=== PATIENT | female | born 1955 | race Caucasian/White ===

== ENCOUNTER → 2017-05-26 | Outpatient (CLI) | payer BC ==
[2016-04-12 10:57] VITALS: BP 131/64
[~2017-05-26] MED LIST: ALPR0.5T6 PO; ASPI500T13 PO; CEFP200T PO; CLOZ25TA7 PO; FAMO20TA5 PO; FESO8TAB PO; INSU100I17 SQ; INSU100I27 SQ; IPRA3AMP NEB; LISI2.5T PO; MAGN400T22 PO; METF-551 PO; METO50TA6 PO; MICO30CR11 TP; MONT10TA9 PO; NORT10CA PO; SERT50TA8 PO; SIMV40TA3 PO; SULF1TAB24 PO
--- NOTE | 2017-05-26 14:40 | RAD ---
DATE: May 26, 2017 EXAM: DIGITAL SCREEN BILAT W/CAD HISTORY: Routine Screening COMPARISON: TECHNIQUE: Routine digital mammographic views were obtained. This study was interpreted with the benefit of Computerized Aided Detection (CAD). The breast parenchyma shows scattered fibroglandular densities. Breast parenchyma level B. FINDINGS: No suspicious findings. IMPRESSION: Negative examination. BI-RADS CATEGORY: 1 NEGATIVE RECOMMENDED FOLLOW-UP: 12M 12 MONTH FOLLOW-UP PQRS compliance statement: Patient information was entered into a reminder system with a target due date for the next mammogram. Mammography is a sensitive method for finding small breast cancers, but it does not detect them all and is not a substitute for careful clinical examination. A negative mammogram does not negate a clinically suspicious finding and should not result in delay in biopsying a clinically suspicious abnormality. "Our facility is accredited by the [employer] Mammography Program."
== END | disposition home or self-care (01) ==
LOC: MAMMO 13:03
PROVIDERS: ATTEND Family Medicine
DX: Z12.31 Encounter for screening mammogram for malignant neoplasm of breast (principal)
CPT/HCPCS: G0202; 77067

== ENCOUNTER → 2019-10-24 | Outpatient (CLI) | payer BC ==
[2016-04-12 10:57] VITALS: BP 131/64
[~2019-10-24] MED LIST changes: -IPRA3AMP NEB; +IPRA3AMP29 NEB; +MONT10TA49 PO; -MONT10TA9 PO; +SIMV40TA18 PO; -SIMV40TA3 PO
--- NOTE | 2019-10-24 14:15 | RAD ---
EXAM: CT head without contrast INDICATION: Abnormal gait, hydrocephalus COMPARISON: CT head 10/08/2015 TECHNIQUE: Axial CT imaging through the head without intravenous contrast. One or more of the following individualized dose reduction techniques were utilized for this examination: 1. Automated exposure control 2. Adjustment of the mA and/or kV according to patient size 3. Use of iterative reconstruction technique. FINDINGS: The ventricles are moderately enlarged and sulci are mild to moderately enlarged, both likely related to volume loss. Marquez-white matter differentiation is maintained. There is no intracranial hemorrhage, acute infarct, or mass lesion. Basal cisterns are clear. The skull and scalp are intact. Paranasal sinuses and mastoid air cells are clear. Globes and orbits are intact. IMPRESSION: 1. No acute intracranial abnormality. 2. Unchanged [id number] volume loss. Electronically signed by: Mavis Emanuel MD (10/24/2019 2:12 PM) [id number]
== END | disposition home or self-care (01) ==
LOC: CT 12:08
PROVIDERS: ATTEND Family Medicine
DX: G93.89 Other specified disorders of brain (principal); G91.9 Hydrocephalus, unspecified; R26.9 Unspecified abnormalities of gait and mobility
CPT/HCPCS: 70450

== ENCOUNTER 2020-03-14 15:57 | Emergency (ER) | payer BC ==
[~2020-03-14] VITALS: Ht 154.9 cm; Wt 93.0 kg
--- NOTE | 2020-03-14 16:24 | ED.ADGEN ---
Past Medical History Past Medical History: COPD, CVA, Dementia, Diabetes-Type II, High Cholesterol, Hypertension, Other Additional Past Medical Histor: CHRONIC BACK PAIN,ALZHEIMER'S Past Surgical History: Hysterectomy, Other Additional Past Surgical Histo: BACK SURGERY Smoking Status: Never Smoker Alcohol Use: None Drug Use: None Adult General Chief Complaint Chief Complaint: HALLUCINATIONS AUDIBLE/VISUAL HPI HPI Patient is a 64 year old female brought in by her who is concerned about worsening hallucinations and disorientation. She has been deteriorating over the past couple of months and over the past few weeks has been confusing people as others who have already . She is having increasing difficulty remembering day-to-day activities. Had a fall yesterday in the hallway will try to go to the restroom but did not pass out or hit her head. Has been diagnosed with Alzheimer's. was concerned today because this was the first time that she has become "belligerent" with him and he states he is normally able to redirect her. Review of Systems Review of Systems Constitutional: Denies fever or chills. [] Eyes: Denies change in visual acuity. [] HENT: Denies nasal congestion or sore throat. [] Respiratory: Denies cough or shortness of breath. [] Cardiovascular: Denies chest pain or edema. [] GI: Denies abdominal pain, nausea, vomiting, bloody stools or diarrhea. [] : Denies dysuria. [] Musculoskeletal: Denies back pain or joint pain. [] Integument: Denies rash. [] Neurologic: Denies headache, focal weakness or sensory changes. [] Endocrine: Denies polyuria or polydipsia. [] Lymphatic: Denies swollen glands. [] Psychiatric: Denies depression or anxiety. [] Current Medications Current Medications Current Medications Medications (Trade) Dose Ordered Sig/Cecelia Start Time Stop Time Status Last Admin Dose Admin Fosfomycin Tromethamine (Monurol) 3 gm 1X ONCE 03/14/20 18:30 03/14/20 18:31 DC Allergies Allergies Allergies Coded Allergies Type Severity Reaction Last Updated Verified adhesive tape Allergy Intermediate 10/10/15 Yes celecoxib Allergy Intermediate 10/08/15 Yes Physical Exam Physical Exam Constitutional: Well developed, well nourished, no acute distress, non-toxic appearance. [] HENT: Normocephalic, atraumatic, bilateral external ears normal, oropharynx moist, no oral exudates, nose normal. [] Eyes: PERRLA, EOMI, conjunctiva normal, no discharge. [] Neck: Normal range of motion, no tenderness, supple, no stridor. [] Cardiovascular:Heart rate regular rhythm, no murmur [] Lungs & Thorax: Bilateral breath sounds clear to auscultation [] Abdomen: Bowel sounds normal, soft, no tenderness, no masses, no pulsatile masses. [] Skin: Warm, dry, no erythema, no rash. [] Back: No tenderness, no CVA tenderness. [] Extremities: No tenderness, no cyanosis, no clubbing, ROM intact, no edema. [] Neurologic: No focal deficits,, patient is slow to answer Psychologic: Flat affect Current Patient Data Vital Signs Vital Signs Date Time Temp Pulse Resp B/P (MAP) Pulse Ox O2 Delivery O2 Flow Rate FiO2 03/14/20 16:45 96 18 116/60 (78) 99 Room Air 03/14/20 16:17 98.5 98.5 Lab Values Laboratory Tests Test 03/14/20 17:24 03/14/20 17:45 Urine Collection Type Unknown Urine Color Yellow Urine Clarity Cloudy Urine pH 5.0 (<5.0-8.0) Urine Specific [place] 1.010 (1.000-1.030) Urine Protein Negative mg/dL (NEG-TRACE) Urine Glucose (UA) Negative mg/dL (NEG) Urine Ketones (Stick) Negative mg/dL (NEG) Urine Blood Negative (NEG) Urine Nitrite Positive (NEG) Urine Bilirubin Negative (NEG) Urine Urobilinogen Dipstick 1.0 mg/dL (0.2 mg/dL) Urine Leukocyte Esterase Moderate (NEG) Urine RBC 0 /HPF (0-2) Urine WBC 20-40 /HPF (0-4) Urine Squamous Epithelial Cells Many /LPF Urine Bacteria Many /HPF (0-FEW) Urine Mucus Mod /LPF Urine Opiates Screen Neg (NEG) Urine Methadone Screen Neg (NEG) Urine Barbiturates Neg (NEG) Urine Phencyclidine Screen Neg (NEG) Urine Amphetamine/Methamphetamine Neg (NEG) Urine Benzodiazepines Screen Pos (NEG) Urine Cocaine Screen Neg (NEG) Urine Cannabinoids Screen Neg (NEG) Urine Ethyl Alcohol Neg (NEG) White Blood Count 8.3 x10^3/uL (4.0-11.0) Red Blood Count 3.79 x10^6/uL (3.50-5.40) Hemoglobin 12.1 g/dL (12.0-15.5) Hematocrit 35.3 % (36.0-47.0) L Mean Corpuscular Volume 93 fL (79-100) Mean Corpuscular Hemoglobin 32 pg (25-35) Mean Corpuscular Hemoglobin Concent 34 g/dL (31-37) Red Cell Distribution Width 12.9 % (11.5-14.5) Platelet Count 137 x10^3/uL (140-400) L Neutrophils (%) (Auto) 61 % (31-73) Lymphocytes (%) (Auto) 30 % (24-48) Monocytes (%) (Auto) 6 % (0-9) Eosinophils (%) (Auto) 2 % (0-3) Basophils (%) (Auto) 1 % (0-3) Neutrophils # (Auto) 5.1 x10^3/uL (1.8-7.7) Lymphocytes # (Auto) 2.5 x10^3/uL (1.0-4.8) Monocytes # (Auto) 0.5 x10^3/uL (0.0-1.1) Eosinophils # (Auto) 0.2 x10^3/uL (0.0-0.7) Basophils # (Auto) 0.1 x10^3/uL (0.0-0.2) Sodium Level 143 mmol/L (136-145) Potassium Level 3.5 mmol/L (3.5-5.1) Chloride Level 106 mmol/L (98-107) Carbon Dioxide Level 28 mmol/L (21-32) Anion Gap 9 (6-14) Blood Urea Nitrogen 8 mg/dL (7-20) Creatinine 1.1 mg/dL (0.6-1.0) H Estimated GFR (Cockcroft-Gault) 50.3 BUN/Creatinine Ratio 7 (6-20) Glucose Level 103 mg/dL (70-99) H Lactic Acid Level 2.2 mmol/L (0.4-2.0) H Calcium Level 9.7 mg/dL (8.5-10.1) Total Bilirubin 0.4 mg/dL (0.2-1.0) Aspartate Amino Transferase (AST) 29 U/L (15-37) Alanine Aminotransferase (ALT) 20 U/L (14-59) Alkaline Phosphatase 131 U/L (46-116) H Total Protein 7.8 g/dL (6.4-8.2) Albumin 3.4 g/dL (3.4-5.0) Albumin/Globulin Ratio 0.8 (1.0-1.7) L Laboratory Tests 03/14/20 17:45 Laboratory Tests 03/14/20 17:45 EKG EKG Normal sinus rhythm, heart rate 97 bpm., Normal axis, normal intervals, flattened T waves [] Interpretation Time: 1631 Radiology/Procedures Radiology/Procedures EXAMINATION: CT HEAD WO CONTRAST (CT HEAD WITHOUT IV CONTRAST) CLINICAL HISTORY: Fall TECHNIQUE: Serial axial images without IV contrast were obtained from the vertex to the foramen magnum. CT Dose Reduction Employed: One or more of the following individualized dose reduction techniques were utilized for this examination: 1. Automated exposure control 2. Adjustment of the mA and/or kV according to patient size 3. Use of iterative reconstruction technique. COMPARISON: 10/24/2019 FINDINGS: Post-operative change: None. Acute change: No evidence of an acute contusion or other acute parenchymal process. Hemorrhage: No evidence of acute intracranial hemorrhage. Mass Lesion / Mass Effect: There is no evidence of an intracranial mass or extraaxial fluid collection. No significant mass effect. Chronic change: None apparent. Parenchyma: There is mild to moderate generalized volume loss. The brain parenchyma is otherwise within normal limits for age. Ventricles: Ventricular enlargement concordant with the degree of parenchymal volume loss. Paranasal sinuses and skull base: The visualized paranasal sinuses are grossly clear. Atherosclerotic ossification of bilateral carotid siphons. The skull base and imaged soft tissues are unremarkable. IMPRESSION: No evidence of acute intracranial abnormality or significant interval change. [] Course & Med Decision Making Course & Med Decision Making Pertinent Labs and Imaging studies reviewed. (See chart for details) Concern for worsening confusion, likely delirium frmo uti, in a patient with dementia. Patient afebrile with no leukocytosis, lactic acid 2.2. No blood in her urinalysis. Unremarkable head CT. Drug screen positive for benzos. Son reports patient has supportive services at home and agrees with plan for discharge. Son and patient understand strict ED return precautions for worsening fever, nausea or vomiting or flulike symptoms, was educated on risk of pyelonephritis and sepsis. UTI was treated with fosfomycin in the ED (to avoid medication noncompliace due to dementia. Encouraged urgent outpatient follow- up with PMD in 1 week to repeat urinalysis.. Life-threatening processes were considered but are low suspicion at this time, given history and physical exam. Pt was educated on all prescription medications and adverse effects. All patient's questions were answered and pt was stable at time of discharge. Life threatening differential includes but is not limited to, intracranial process/cva, sepsis, delirium, shock, etc I spoken with the patient and her caregivers. I explained the patient's condit ion, diagnoses and treatment plan based on the information available to me at this time. I have answered the patient and her caregiver's questions and addressed any concerns. The patient and her caregivers have a good understanding of patient's diagnosis, condition and treatment plan as can be exp ected at this point. Vital signs have been stable. Patient's condition is stable and appropriate for discharge from the emergency department. Patient will pursue further outpatient evaluation with primary care physician or other designated or consulting physician as outlined in the discharge ins tructions. The patient and/or caregivers are agreeable to this plan of care and follow-up instructions have been explained in detail. The patient and/or caregivers have received these instructions in written form and have expressed an understanding of the discharge instructions. The patient and/or caregivers are aware that any significant change of condition or worsening of symptoms should prompt immediate return to this or the closest emergency department or call to 911. Sharon Disclaimer Dragon Disclaimer This electronic medical record was generated, in whole or in part, using a voice recognition dictation system. Departure Departure Impression: Primary Impression: UTI (urinary tract infection) Additional Impression: Dementia Disposition: 01 DC HOME SELF CARE/HOMELESS Condition: STABLE Referrals: Natalya LIZ MD (PCP) in 1 week to repeat u/a, return to ed if you develop any fever, nausea, vomiting or flulike symptoms Patient Instructions: Dementia, Urinary Tract Infection Additional Instructions: EMERGENCY DEPARTMENT GENERAL DISCHARGE INSTRUCTIONS Thank you for coming to [facility] Emergency Department (ED) today and trusting us with you care. We trust that you had a positive experience in our Emergency Department. If you wish to speak to the department management, you may call the Director at [phone]. YOUR FOLLOW UP INSTRUCTIONS ARE FOLLOWS: 1. Do you have a private Doctor? If you do not have a private doctor, please ask for a resource list of physicians or clinics that may be able to assist you with follow up care. 2. The Emergency Physicain has interpreted your x-rays. The X-Ray specialist will also review them. If there is a change in the findings, you will be notified in 48 hours when at all possible. 3. A lab test or culture has been done, your results will be reviewed and you will be notified if you need a change in treatment. ADDITIONAL INSTRUCTIONS AND INFORMATION: 1. Your care today has been supervised by a physician who is specially trained in emergency care. Many problems require more than one evaluation for a complete diagnosis and treatment. We recommend that you schedule your follow up appointment as recommended to ensure complete treatment of you illness or injury. If you are unable to obtain follow up care and continue to have a problem, or if your condition worsens, we recommend that you return to the ED. 2. We are not able to safely determine your condition over the phone nor are we able to give sound medical advice over the phone. For these safety reasons, if you call for medical advice we will ask you to come to the ED for further evaluation. 3. If you have any questions regarding these discharge instructions please call the ED at [phone]. SAFETY INFORMATION: In the interest of safety, wellness, and injury prevention; we encourage you to wear your sealbelt, if you smoke; quite smoking, and we encourage family to use a protective helmet for bicycling and other sporting events that present an increased risk for head injury. IF YOUR SYMPTOMS WORSEN OR NEW SYMPTOMS DEVELOP, OR YOU HAVE CONCERNS ABOUT YOUR CONDITION; OR IF YOUR CONDITION WORSENS WHILE YOU ARE WAITING FOR YOUR FOLLOW UP APPOINTMENT; EITHER CONTACT YOUR PRIMARY CARE DOCTOR, THE PHYSICIAN WHOSE NAME AND NUMBER YOU WERE GIVEN, OR RETURN TO THE ED IMMEDIATELY. Problem Qualifiers TORIBIO COBOS MD Mar 14, 2020 16:24 NARDA ESPINO DO Mar 14, 2020 18:46
[2020-03-14 17:31] LABS: BILIRUBIN,URINE NEGATIVE (NEG); CLARITY,URINE CLOUDY; COLOR,URINE YELLOW; NITRITE,URINE POSITIVE (NEG); PROTEIN,URINE NEGATIVE (NEG-TRACE)
[2020-03-14 17:37] LABS: BACTERIA,URINE MANY /HPF (0-FEW); WBC,URINE 20-40 /HPF (0-4)
[2020-03-14 17:38] LABS: AMPHETAMINE/METHAMPHETAMINE NEG (NEG); BARBITURATES NEG (NEG); BENZODIAZEPINES POS (NEG); CANNABINOIDS NEG (NEG); COCAINE NEG (NEG); METHADONE NEG (NEG); OPIATES NEG (NEG); PHENCYCLIDINE NEG (NEG); RBC,URINE 0 /HPF (0-2)
--- NOTE | 2020-03-14 17:38 | RAD ---
EXAMINATION: CT HEAD WO CONTRAST (CT HEAD WITHOUT IV CONTRAST) CLINICAL HISTORY: Fall TECHNIQUE: Serial axial images without IV contrast were obtained from the vertex to the foramen magnum. CT Dose Reduction Employed: One or more of the following individualized dose reduction techniques were utilized for this examination: 1. Automated exposure control 2. Adjustment of the mA and/or kV according to patient size 3. Use of iterative reconstruction technique. COMPARISON: 10/24/2019 FINDINGS: Post-operative change: None. Acute change: No evidence of an acute contusion or other acute parenchymal process. Hemorrhage: No evidence of acute intracranial hemorrhage. Mass Lesion / Mass Effect: There is no evidence of an intracranial mass or extraaxial fluid collection. No significant mass effect. Chronic change: None apparent. Parenchyma: There is mild to moderate generalized volume loss. The brain parenchyma is otherwise within normal limits for age. Ventricles: Ventricular enlargement concordant with the degree of parenchymal volume loss. Paranasal sinuses and skull base: The visualized paranasal sinuses are grossly clear. Atherosclerotic ossification of bilateral carotid siphons. The skull base and imaged soft tissues are unremarkable. IMPRESSION: No evidence of acute intracranial abnormality or significant interval change. Electronically signed by: Lan Andrews DO (03/14/2020 5:35 PM) [id number]
--- NOTE | 2020-03-14 17:54 | EKG ---
[facility] [address] [place] [address] Test Date: 2020-03-14 Test Time: 16:27:02 Pat Name: AMARA HINOJOSA Department: Room: Gender: F Second Helper: : 1955 Requested By: TORIBIO COBOS Order Number: [id number] Reading MD: Measurements Intervals [place] Rate: 97 P: -2 DE: 136 QRS: 24 QRSD: 80 T: -15 QT: 324 QTc: 415 Interpretive Statements SINUS RHYTHM T ABNORMALITY IN ANTERIOR LEADS INFERIOR LEADS ABNORMAL ECG RI6.02 No previous ECG available for comparison
[2020-03-14 17:58] LABS: BASO # 0.1 x10^3/uL (0.0-0.2); BASO % 1 % (0-3); EOS # 0.2 x10^3/uL (0.0-0.7); EOS % 2 % (0-3); HEMATOCRIT 35.3 % (36.0-47.0); HEMOGLOBIN 12.1 g/dL (12.0-15.5); LYMPH # 2.5 x10^3/uL (1.0-4.8); LYMPH % 30 % (24-48); MEAN CORPUSCULAR HEMOGLOBIN 32 pg (25-35); MEAN CORPUSCULAR HGB CONC 34 g/dL (31-37); MEAN CORPUSCULAR VOLUME 93 fL (79-100); MONO # 0.5 x10^3/uL (0.0-1.1); MONO % 6 % (0-9); NEUT # 5.1 x10^3/uL (1.8-7.7); NEUT % 61 % (31-73); PLATELET COUNT 137 x10^3/uL (140-400); RED BLOOD COUNT 3.79 x10^6/uL (3.50-5.40); RED CELL DISTRIBUTION WIDTH 12.9 % (11.5-14.5); WHITE BLOOD COUNT 8.3 x10^3/uL (4.0-11.0)
[2020-03-14 18:05] LABS: CALCIUM 9.7 mg/dL (8.5-10.1); CREATININE 1.1 mg/dL (0.6-1.0); GFR 50.3; POTASSIUM 3.5 mmol/L (3.5-5.1)
[2020-03-14 18:11] LABS: ALBUMIN 3.4 g/dL (3.4-5.0); ALBUMIN/GLOBULIN RATIO 0.8 (1.0-1.7); TOTAL BILIRUBIN 0.4 mg/dL (0.2-1.0); TOTAL PROTEIN 7.8 g/dL (6.4-8.2)
[2020-03-14] MEDS ORDERED: FOSFOMYCIN TROMETHAMINE 3 GM PACKET PO ONE (18:30)
[2020-03-14 18:42] VITALS: BP 161/92
== END 2020-03-14 19:18 | disposition home or self-care (01) ==
LOC: ER 15:57
DX: N39.0 Urinary tract infection, site not specified (principal); F03.90 Unspecified dementia, unspecified severity, without behavioral disturbance, psychotic disturbance, mood disturbance, and anxiety; R44.3 Hallucinations, unspecified; R41.0 Disorientation, unspecified; R11.2 Nausea with vomiting, unspecified; R50.9 Fever, unspecified; J44.9 Chronic obstructive pulmonary disease, unspecified; E78.00 Pure hypercholesterolemia, unspecified; I10 Essential (primary) hypertension; G89.29 Other chronic pain; E11.9 Type 2 diabetes mellitus without complications; Z86.73 Personal history of transient ischemic attack (TIA), and cerebral infarction without residual deficits; Z90.710 Acquired absence of both cervix and uterus; Z98.890 Other specified postprocedural states; Z88.8 Allergy status to other drugs, medicaments and biological substances
CPT/HCPCS: 36415; 70450; 80053; 80307; 81001; 83605; 85025; 87086; 93005; 99285

== ENCOUNTER → 2020-04-04 | Outpatient (CLI) | payer BC ==
[2020-03-14 18:42] VITALS: BP 161/92
--- NOTE | 2020-04-04 17:36 | RAD ---
DATE: 04/04/2020 1:21 PM EXAM: DIGITAL SCREEN BILAT W/CAD HISTORY: Screening COMPARISON: 05/26/2017 Bilateral full field craniocaudal and mediolateral oblique images were obtained using digital technique. This study was interpreted with the benefit of Computerized Aided Detection (CAD). FINDINGS: Breast Density: SCATTERED The breast parenchyma shows scattered fibroglandular densities. Breast parenchyma level B Negative right mammogram. Possible developing asymmetry in the middle third left breast slightly lateral of midline needs additional imaging with full-field ML view and possible targeted left breast ultrasound. IMPRESSION: Left breast asymmetry, findings for which additional imaging is advised. BI-RADS CATEGORY: 0 INCOMPLETE: NEEDS ADDITIONAL IMAGING EVALUATION AND/OR PRIOR MAMMOGRAMS FOR COMPARISON. RECOMMENDED FOLLOW-UP: ADD ADDITIONAL IMAGING The patient will be contacted to return for additional imaging and a supplemental report will follow. PQRS compliance statement: Patient information was entered into a reminder system with a target due date for the next mammogram. Mammography is a sensitive method for finding small breast cancers, but it does not detect them all and is not a substitute for careful clinical examination. A negative mammogram does not negate a clinically suspicious finding and should not result in delay in biopsying a clinically suspicious abnormality. "Our facility is accredited by the [employer] Mammography Program."
== END ==
LOC: MAMMO 13:14
PROVIDERS: ATTEND Family Medicine
DX: Z12.31 Encounter for screening mammogram for malignant neoplasm of breast (principal)
CPT/HCPCS: 77067

== ENCOUNTER → 2020-04-30 | Outpatient (CLI) | payer BC ==
--- NOTE | 2020-04-30 17:25 | RAD ---
Examination: 1. Digital left diagnostic mammogram. 2. Limited left breast ultrasound. INDICATION: 64-year-old woman recalled from screening for asymmetry in the upper outer left breast. She reports a recent history of direct trauma to this upper outer quadrant left breast. COMPARISON: Screening mammogram of 04/04/2020 and 05/26/2017 TECHNIQUE AND FINDINGS: Additional mammographic views of the left breast (a single left ML view) showed decreased conspicuity of the questioned asymmetry recalled from screening and the presence of multiple scattered mammographically benign oil cysts in the superior left breast. The breast is almost entirely fatty replaced. Targeted ultrasound of the upper outer left breast revealed multiple sonographically benign cysts and scattered areas of increased echogenicity in the subcutaneous fat compatible with fat necrosis. No suspicious sonographic findings were apparent. Service Cashier images were acquired at the 12 30-1 30 o'clock position approximately 8 cm from the nipple. Sonographic survey of the left axilla revealed no adenopathy. IMPRESSION: Probably benign posttraumatic findings in the upper outer left breast. Recommend a six-month follow-up left diagnostic mammogram. BI-RADS Category 3 Probably benign findings Patient entered into a reminder system with targeted due date for next mammogram. Electronically signed by: Marianela Dunn MD (04/30/2020 5:22 PM) [id number]
== END ==
LOC: US 13:00
PROVIDERS: ATTEND Family Medicine
DX: N60.02 Solitary cyst of left breast (principal)
CPT/HCPCS: 76641; 77065

== ENCOUNTER 2020-05-30 08:50 | Emergency (ER) | payer BC ==
[~2020-05-30] VITALS: Ht 162.6 cm; Wt 86.3 kg
[2020-05-30] MEDS ORDERED: LIDOCAINE 1%/EPI 1:100,000 20 ML VIAL. INJ ONE (09:00)
--- NOTE | 2020-05-30 09:12 | ED.ADGEN ---
Past Medical History Past Medical History: COPD, CVA, Dementia, Diabetes-Type II, High Cholesterol, Hypertension, Other Additional Past Medical Histor: CHRONIC BACK PAIN,ALZHEIMER'S Past Surgical History: Hysterectomy, Other Additional Past Surgical Histo: BACK SURGERY Smoking Status: Never Smoker Alcohol Use: None Drug Use: None General Adult EDM: Chief Complaint: MECHANICAL FALL HPI: HPI: Patient is a 64 year old female brought in by after a fall 1 hour prior to arrival. Patient has a history of Alzheimer's that is shuffling gait and has frequent falls. witnessed the fall and says she had gotten up out of her chair and lost balance and fell forward and hit the wall a couple of feet in front of her. No loss of consciousness. Otherwise has been well without any recent fevers, cough, vomiting or diarrhea. History provided by Review of Systems: Review of Systems: Negative other than HPI Current Medications: Current Medications Medications (Trade) Dose Ordered Sig/Cecelia Start Time Stop Time Status Last Admin Dose Admin Lidocaine/ Epinephrine (LIDOCAINE 1%-EPI 1:100,000 Multi-Dose) 20 ml 1X ONCE 05/30/20 09:00 05/30/20 09:02 DC 05/30/20 09:15 20 ML Neomycin/ Polymyxin/ Bacitracin (Triple Antibiotic Ointment) 1 pkt 1X ONCE 05/30/20 10:00 05/30/20 10:01 Allergies: Allergies: Allergies Coded Allergies Type Severity Reaction Last Updated Verified adhesive tape Allergy Intermediate 10/10/15 Yes celecoxib Allergy Intermediate 10/08/15 Yes Physical Exam: PE: Constitutional: Well developed, well nourished, no acute distress, non-toxic appearance. [] HENT: Normocephalic, atraumatic, bilateral external ears normal, oropharynx moist, no oral exudates, nose normal. [] Eyes: PERRLA, EOMI, conjunctiva normal, no discharge. [] Neck: Normal range of motion, no tenderness, supple, no stridor. [] no c spine tenderness Cardiovascular:Heart rate regular rhythm, no murmur [] Lungs & Thorax: Bilateral breath sounds clear to auscultation [] Abdomen: Bowel sounds normal, soft, no tenderness, no masses, no pulsatile masses. [] Skin: Warm, dry, no erythema, no rash. [] Extremities: No tenderness, no cyanosis, no clubbing, ROM intact, no edema. [] Neurologic: Alert and oriented X 3, normal motor function, normal sensory func tion, no focal deficits noted. [] Psychologic: Affect normal, judgement normal, mood normal. [] Current Patient Data: Vital Signs: Vital Signs Date Time Temp Pulse Resp B/P (MAP) Pulse Ox O2 Delivery O2 Flow Rate FiO2 05/30/20 09:01 97.9 76 18 150/67 (94) 97 Room Air 97.9 EKG: EKG: [] Heart Score: Risk Factors: Risk Factors: DM, Current or recent (<one month) smoker, HTN, HLP, family history of CAD, obesity. Risk Scores: Score 0 - 3: 2.5% MACE over next 6 weeks - Discharge Home Score 4 - 6: 20.3% MACE over next 6 weeks - Admit for Clinical Observation Score 7 - 10: 72.7% MACE over next 6 weeks - Early Invasive Strategies Radiology/Procedures: Radiology/Procedures: Left forehead laceration, 2 cm and irregular. Approximate 3 mm deep. Irrigated thoroughly with saline and examined to depth of wound. Anesthesia achieved with 2 cc of lidocaine with epinephrine. Wound closed with 5-0 Ethilon, 4 simple interrupted sutures placed without complication. Course & Med Decision Making: Course & Med Decision Making Pertinent Labs and Imaging studies reviewed. (See chart for details) [] Dragon Disclaimer: Dragon Disclaimer: This electronic medical record was generated, in whole or in part, using a voice recognition dictation system. Departure Departure Impression: Primary Impression: Fall Additional Impression: Forehead laceration Disposition: 01 DC HOME SELF CARE/HOMELESS Condition: IMPROVED Referrals: Natalya LIZ MD (PCP) Patient Instructions: Facial Laceration Additional Instructions: Follow-up with primary care for suture removal in 5 to 7 days Problem Qualifiers TORIBIO COBOS MD May 30, 2020 09:12
[2020-05-30] MEDS ORDERED: NEOMY/BACITR/POLYMYXIN OINT PACKET. TP ONE (10:00)
== END 2020-05-30 10:10 | disposition home or self-care (01) ==
LOC: ER 08:50
DX: S01.81XA Laceration without foreign body of other part of head, initial encounter (principal); J44.9 Chronic obstructive pulmonary disease, unspecified; I10 Essential (primary) hypertension; E11.9 Type 2 diabetes mellitus without complications; E78.00 Pure hypercholesterolemia, unspecified; G89.29 Other chronic pain; F03.90 Unspecified dementia, unspecified severity, without behavioral disturbance, psychotic disturbance, mood disturbance, and anxiety; Z90.710 Acquired absence of both cervix and uterus; Z98.890 Other specified postprocedural states; W18.39XA Other fall on same level, initial encounter; Y93.89 Activity, other specified; Y92.89 Other specified places as the place of occurrence of the external cause; Y99.8 Other external cause status
CPT/HCPCS: 12011; 99284; J3490

== ENCOUNTER 2020-10-23 14:13 | Emergency (ER) | payer BC ==
[~2020-10-23] VITALS: Ht 165.1 cm; Wt 71.3 kg
[~2020-10-23 14:13] MED LIST changes: +SERT-267 PO; -SERT50TA8 PO
[2020-10-23] MEDS ORDERED: VANCOMYCIN PER PHARMACY MC PRN (14:30)
--- NOTE | 2020-10-23 14:33 | PHYS DOC ---
Past Medical History Past Medical History: COPD, CVA, Dementia, Diabetes-Type II, High Cholesterol, Hypertension, Other Additional Past Medical Histor: CHRONIC BACK PAIN,ALZHEIMER'S Past Surgical History: Hysterectomy, Other Additional Past Surgical Histo: BACK SURGERY Smoking Status: Never Smoker Alcohol Use: None Drug Use: None General Adult EDM: Chief Complaint: Elevated heart rate and decreased level of consciousness. HPI: HPI: This is a pleasant chronically demented patient with a chronically low GCS who is 65 years old who was brought in by EMS after the family called about an elevated heart rate. Upon their arrival the patient is a baseline GCS potentially minimally lower but at baseline is not very responsive. EMS reports the patient is febrile. The patient was at home and EMS reports that it did not look like the patient had been moved for a while. Heart rate of 140 by EMS blood sugar of 137. The patient is unable to answer my questions which is reported to be baseline for the patient. Unknown last known well time but EMS report is likely greater than 24 hours. onset today. location generalized. duration constant. Review of systems negative for chest pain shortness of breath abdominal pain vomiting diaphoresis. Positive for fever. Negative for rash. All other review of systems negative Heart Score: C/O Chest Pain: No Risk Factors: Risk Factors: DM, Current or recent (<one month) smoker, HTN, HLP, family history of CAD, obesity. Risk Scores: Score 0 - 3: 2.5% MACE over next 6 weeks - Discharge Home Score 4 - 6: 20.3% MACE over next 6 weeks - Admit for Clinical Observation Score 7 - 10: 72.7% MACE over next 6 weeks - Early Invasive Strategies Allergies: Allergies: Allergies Coded Allergies Type Severity Reaction Last Updated Verified adhesive tape Allergy Intermediate 10/10/15 Yes celecoxib Allergy Intermediate 10/08/15 Yes Physical Exam: PE: Constitutional: Patient appears chronically debilitated her lips are dry with dried mucus at the nare and mouth. HENT: Normocephalic, left maxillary bruising present without abrasion. no lacerations abrasions to the head or neck. Bilateral external ears normal, oropharynx moist, no oral exudates, nose normal. [] Eyes: PERRLA, EOMI, conjunctiva normal, no discharge. [] Neck: Normal range of motion, no tenderness, supple, no stridor. [] Cardiovascular: Tachycardic rate with a regular rhythm. Regular rhythm, no murmur [] Upper extremities: Nontender with normal range of motion of the joints. No abrasions lacerations or ecchymosis. Palpable pulse present. 2-second cap refill. Normal neurovascular status Lungs & Thorax: Bilateral breath sounds clear to auscultation [] no wheezing. Abdomen: Bowel sounds normal, soft, no tenderness, no masses, no pulsatile masses. [] Nondistended. No rebound tenderness or guarding Hips: The patient's hips have normal range of motion without any pain. Nontender knees and ankles. No ecchymosis lacerations or abrasions of the lower extremities. Skin: Warm, dry, no erythema, no rash. [] Poor turgor Back: No tenderness, no CVA tenderness. [] Extremities: No tenderness, no cyanosis, no clubbing, ROM intact, no edema. [] Neurologic: Mental status: Opens eyes to physical stimulus which is reported to be the patient's baseline. Unable to assess orientation. Nonverbal which is reportedly the patient's baseline. Cranial nerves: Unable to evaluate. Patient does not follow commands. Patient's pupils are equal and reactive. Patient is able to look left and right without a disconjugate gaze. Facial smile symmetric. Patient is aphasic which is reported to be the patient's baseline Sensation: Unable to assess but patient moves both upper extremities with sternal rub by EMS. Strength: Difficult to assess but without focal neurologic deficit. Patient is able to give a thumbs up on both upper extremities and wiggle toes bilaterally without any weakness. Psychologic: Affect normal, judgement normal, mood normal. [] EKG: EKG: EKG shows sinus rhythm with a tachycardic rate. ST segments congruent. Not suggestive of acute ischemia. Nonspecific T wave flattening in the inferior leads. [] Radiology/Procedures: Radiology/Procedures: [] Course & Med Decision Making: Course & Med Decision Making Pertinent Labs and Imaging studies reviewed. (See chart for details) [] 65-year-old female with a history of Parkinson's coming into the emergency department with tachycardia and a fever. On arrival heart rate was 125. Temperature 100.9. Patient is at baseline neurologic exam per report initial blood work shows a CBC within normal limits. Chemistry panel shows elevated creatinine kinase suggestive of rhabdomyolysis. Procalcitonin less than 0.1. Lactic acid 1.8. Urine analysis shows urinary tract infection. CT head showed maxillary sinus fractures involving the orbital floor. There was no history of fall prior to that event. I then went and spoke with the who explains that the patient fell about 2 weeks ago on her face. We then ordered a maxillofacial CT and a neck CT which showed no other acute traumatic injuries. Pelvis x-ray also added on which was negative for acute fracture. Patient was given broad-spectrum antibiotics here in the emergency department along with IV fluid administration. Her heart rate improved substantially after IV fluids into the 90s. Because we do not have ophthalmology or ENT coverage to consult on the patient's facial fractures, we will admit the patient to the [facility]. I spoke with the transfer center who accepts patient for admission on behalf of Dr. Pan. Sharon Disclaimer: Sharon Disclaimer: This electronic medical record was generated, in whole or in part, using a voice recognition dictation system. Departure Departure Impression: Primary Impression: UTI (urinary tract infection) Additional Impressions: Maxillary fracture Hypovolemia Tachycardia Sepsis Disposition: 02 SHORT TERM HOSPITAL Condition: GUARDED Referrals: Natalya LIZ MD (PCP) RAEGAN SABA MD October 23, 2020 14:33
--- NOTE | 2020-10-23 14:48 | RAD ---
EXAM: Chest, single view. HISTORY: Decreased level of consciousness. COMPARISON: 04/10/2016 FINDINGS: A frontal view of the chest is obtained. There is no infiltrate, pleural effusion or pneumo thorax. The heart is normal in size. There is lumbar fusion instrumentation, partially included on th e [id number]. IMPRESSION: No acute pulmonary finding. Electronically signed by: Araceli Echevarria MD (10/23/2020 2:46 PM) [id number]
[2020-10-23 14:54] LABS: BASO # 0.1 x10^3/uL (0.0-0.2); BASO % 1 % (0-3); EOS % 0 % (0-3); HEMOGLOBIN 12.4 g/dL (12.0-15.5); LYMPH # 1.7 x10^3/uL (1.0-4.8); LYMPH % 16 % (24-48); MEAN CORPUSCULAR HEMOGLOBIN 32 pg (25-35); MEAN CORPUSCULAR HGB CONC 35 g/dL (31-37); MEAN CORPUSCULAR VOLUME 92 fL (79-100); MONO # 0.6 x10^3/uL (0.0-1.1); MONO % 6 % (0-9); NEUT # 8.2 x10^3/uL (1.8-7.7); NEUT % 77 % (31-73); PLATELET COUNT 187 x10^3/uL (140-400); RED BLOOD COUNT 3.94 x10^6/uL (3.50-5.40); WHITE BLOOD COUNT 10.7 x10^3/uL (4.0-11.0)
[2020-10-23 14:59] LABS: BILIRUBIN,URINE SMALL (NEG); CLARITY,URINE CLOUDY; COLOR,URINE AMBER; NITRITE,URINE POSITIVE (NEG); PH,URINE 5.5 (<5.0-8.0); PROTEIN,URINE 100 mg/dL (NEG-TRACE)
[2020-10-23] MEDS ORDERED: IV NORMAL SALINE 1000ML BAG 1,000 ML IV ONE ×3 (15:00→15:45)
[2020-10-23 15:07] LABS: BACTERIA,URINE MANY /HPF (0-FEW); HYALINE CASTS, URINE MODERATE /HPF
[2020-10-23 15:09] LABS: RBC,URINE RARE /HPF (0-2)
[2020-10-23 15:16] LABS: CALCIUM 9.3 mg/dL (8.5-10.1); CREATININE 1.2 mg/dL (0.6-1.0); GFR 45.4; POTASSIUM 3.9 mmol/L (3.5-5.1)
[2020-10-23 15:30] LABS: ALBUMIN 2.7 g/dL (3.4-5.0); DIRECT BILIRUBIN 0.2 mg/dL (0.0-0.2); TOTAL BILIRUBIN 0.6 mg/dL (0.2-1.0)
--- NOTE | 2020-10-23 15:33 | RAD ---
EXAM: CT Head without IV contrast CLINICAL HISTORY: Reason: DECREASED LOC / Spl. Instructions: / History: COMPARISON: None. TECHNIQUE: Routine CT of the head without contrast. PQRS compliance statement - One or more of the following individualized dose reduction techniques wer e utilized for this study: 1. Automated exposure control 2. Adjustment of the mA and/or kV according to patient size 3. Use of iterative reconstruction technique FINDINGS: There is no evidence of hemorrhage, mass or extra-axial fluid collection. Marquez-white differentiation is maintained with no evidence of edema. Subcortical and periventricular a s well as deep white matter foci of hypoattenuation likely chronic small vessel disease. There is no mass effect or shift of the intracranial structures. The ventricles, basilar cisterns and cortical sulci are normal in size and configuration for the gilbert ents stated age. The cerebellum and brainstem are unremarkable. The calvarium demonstrates no evidence of fracture or focal lesion. Partial opacification of the left maxillary sinus with acute appearing fractures of the anterior and posterior white. No definite zygomatic arch fracture. This may extend into the orbital floor and can be further assessed by dedicated CT facial bones. The visualized portions of the orbits are normal. IMPRESSION: 1. There is a nondisplaced fracture of the anterior and posterior wall of the left maxillary sinus w ith probable involvement of the orbital floor. Associated left maxillary sinus opacification. This ca n be further profiled by dedicated CT facial bones. 2. Otherwise no evidence for acute intracranial abnormality. 3. White matter changes likely chronic small vessel disease. Electronically signed by: Tacos Carrasquillo MD (10/23/2020 3:30 PM) KATE
--- NOTE | 2020-10-23 15:36 | PDOC1 ---
History and Physical Date of Admission Date of Admission DATE: 10/23/20 TIME: 15:35 Identification/Chief Complaint Chief Complaint AMS, FEVER History of Present Illness History of Present Illness chronically demented patient with a chronically low GCS who is 65 years old who was brought in by EMS after the family called about an elevated heart rate. patient is a baseline GCS potentially minimally lower but at baseline / not very responsive. EMS reports the patient is febrile. The patient was at home and EMS reports that it did not look like the patient had been moved for a while. Heart rate of 140 by EMS blood sugar of 137. unable to answer my questions which is reported to be baseline for the patient. Unknown last known well time but EMS report is likely greater than 24 hours. onset today. location generalized. duration constant. CT HEAD C/W nondisplaced fracture of the anterior and posterior wall of the left maxillary sinus with probable involvement of the orbital floor. Associated left maxillary sinus opacification. Review of systems negative for chest pain shortness of breath abdominal pain vomiting diaphoresis. Positive for fever. Negative for rash. All other review of systems negative We do not have inhouse ENT OR OPHTHALMOLOGY HERE WILL SEND TO [facility] D/W DR SABA Past Medical History Past Medical History Past Medical History Past Medical History Past Medical History: COPD, CVA, Dementia, Diabetes-Type II, High Cholesterol, Hypertension, Other Additional Past Medical Histor: CHRONIC BACK PAIN,ALZHEIMER'S Past Surgical History: Hysterectomy, Other Additional Past Surgical Histo: BACK SURGERY Smoking Status: Never Smoker Alcohol Use: None Drug Use: None FHX HTN Cardiovascular: HTN, Other Pulmonary: COPD CENTRAL NERVOUS SYSTEM: CVA GI: GERD Psych: Anxiety, Panic Musculoskeletal: Other Endocrine: Diabetes, Hypothyroidism Past Surgical History Past Surgical History: No pertinent history Family History Family History: Cancer, Hypertension Social History Smoke: No ALCOHOL: none Drugs: None Current Medications Current Medications Current Medications Levofloxacin/ Dextrose 150 ml @ 100 mls/hr Q24H IV ; Start 10/23/20 at 14:30; Stop 10/28/20 at 14:29 Vancomycin HCl (Vanco Per Pharmacy) 1 each PRN DAILY PRN MC SEE COMMENTS; Start 10/23/20 at 14:30; Status UNV Sodium Chloride 1,000 ml @ 1,000 mls/hr 1X ONCE IV Last administered on 10/23/20at 14:55; Start 10/23/20 at 15:00; Stop 10/23/20 at 15:59 Vancomycin HCl 1.75 gm/Sodium Chloride 500 ml @ 250 mls/hr 1X ONCE IV ; Start 10/23/20 at 16:00; Stop 10/23/20 at 17:59 Sodium Chloride 1,000 ml @ 1,000 mls/hr 1X ONCE IV ; Start 10/23/20 at 15:30; Stop 10/23/20 at 16:29 Active Scripts Active Novolog Flexpen (Insulin Aspart) 100 Unit/1 Ml Insuln.pen 3 Unit SQ TIDAC 3 units TID if blood sugar more than 150 before meals Levemir Flextouch (Insulin Detemir) 100 Unit/1 Ml Insuln.pen 20 Units SQ QHS Bactrim Ds Tablet (Sulfamethoxazole/Trimethoprim) 1 Each Tablet 1 Tab PO BID Mag-Oxide (Magnesium Oxide) 400 Mg Tablet 1 Tab PO DAILY Duoneb 0.5-3(2.5) Mg/3 Ml (Albuterol/Ipratropium) 3 Ml Ampul.neb 3 Ml NEB QID Reported Alprazolam 0.5 Mg Tablet 0.5 Mg PO PRN PRN Gave dose at 1100 am may take again after 3pm when needed for anxiety Nortriptyline Hcl 10 Mg Capsule 1 Cap PO QHS Gave last night Take again tonight Simvastatin 40 Mg Tablet 40 Mg PO HS Gave last night Take again tonight Sertraline Hcl 50 Mg Tablet 50 Mg PO DAILY Gave this morning Take again in the morning Famotidine 20 Mg Tablet 1 Tab PO BID Gave this morning Take again tonight Montelukast Sodium Tablet (Montelukast Sodium) 10 Mg Tablet 1 Tab PO DAILY Gave this morning Take again in the morning Lisinopril 2.5 Mg Tablet 1 Tab PO DAILY Gave this morning Take again in the morning Clozapine 25 Mg Tablet 25 Mg PO TID Gave this morning Take again this afternoon and then this evening Metoprolol Tartrate 50 Mg Tablet 1 Tab PO BID Gave this morning Take again tonight Metformin HCl ER (Metformin HCl) 1,000 Mg [id number] 1,000 Mg PO BID Gave this morning Take again this evening with meals Luisa Advanced (Aspirin) 500 Mg Tablet 325 Mg PO Gave this morning Take again in the morning Allergies Allergies: Coded Allergies: adhesive tape (Verified Allergy, Intermediate, 10/10/15) celecoxib (Verified Allergy, Intermediate, 10/08/15) ROS Review of System ROS IMPAIRED BY DEMENTIA General: YES: Chills, Fatigue, Malaise, Appetite PSYCHOLOGICAL ROS: YES: Disorientation; No: Anxiety, Behavioral Disorder, Concentration difficultie, Decreased libido, Depression, Hallucinations, Hostility, Irritablity, Memory difficulties, Mood Swings, Obsessive thoughts, Physical abuse, Sexual abuse, Sleep disturbances, Suicidal ideation, Other Eyes: Yes Decreased vision HEENT: YES: Heacaches; No: Visual Changes, Hearing change, Nasal congestion, Nasal discharge, Oral lesions, Sinus pain, Sore Throat, Epistaxis, Sneezing, Snoring, Tinnitus, Vertigo, Vocal changes, Other ALLERGY AND IMMUNOLOGY: YES: Hives; No: Insect Bite Sensitivity, Itchy/Watery Eyes, Nasal Congestion, Post Nasal Drip, Seasonal Allergies, Other Hematological and Lymphatic: No: Bleeding Problems, Blood Clots, Blood Transfusions, Brusing, Night Sweats, Pallor, Swollen Lymph Nodes, Other Vitals Vitals Vital Signs Date Time Temp Pulse Resp B/P (MAP) Pulse Ox O2 Delivery O2 Flow Rate FiO2 10/23/20 14:20 100.9 125 16 142/72 (95) 92 Room Air 100.9 Labs Labs Laboratory Tests Test 10/23/20 14:30 10/23/20 14:50 White Blood Count 10.7 x10^3/uL (4.0-11.0) Red Blood Count 3.94 x10^6/uL (3.50-5.40) Hemoglobin 12.4 g/dL (12.0-15.5) Hematocrit 36.0 % (36.0-47.0) Mean Corpuscular Volume 92 fL (79-100) Mean Corpuscular Hemoglobin 32 pg (25-35) Mean Corpuscular Hemoglobin Concent 35 g/dL (31-37) Red Cell Distribution Width 14.0 % (11.5-14.5) Platelet Count 187 x10^3/uL (140-400) Neutrophils (%) (Auto) 77 % (31-73) Lymphocytes (%) (Auto) 16 % (24-48) Monocytes (%) (Auto) 6 % (0-9) Eosinophils (%) (Auto) 0 % (0-3) Basophils (%) (Auto) 1 % (0-3) Neutrophils # (Auto) 8.2 x10^3/uL (1.8-7.7) Lymphocytes # (Auto) 1.7 x10^3/uL (1.0-4.8) Monocytes # (Auto) 0.6 x10^3/uL (0.0-1.1) Eosinophils # (Auto) 0.0 x10^3/uL (0.0-0.7) Basophils # (Auto) 0.1 x10^3/uL (0.0-0.2) Sodium Level 144 mmol/L (136-145) Potassium Level 3.9 mmol/L (3.5-5.1) Chloride Level 104 mmol/L (98-107) Carbon Dioxide Level 29 mmol/L (21-32) Anion Gap 11 (6-14) Blood Urea Nitrogen 18 mg/dL (7-20) Creatinine 1.2 mg/dL (0.6-1.0) Estimated GFR (Cockcroft-Gault) 45.4 Glucose Level 130 mg/dL (70-99) Lactic Acid Level 1.8 mmol/L (0.4-2.0) Calcium Level 9.3 mg/dL (8.5-10.1) Total Bilirubin 0.6 mg/dL (0.2-1.0) Direct Bilirubin 0.2 mg/dL (0.0-0.2) Aspartate Amino Transf (AST/SGOT) 93 U/L (15-37) Alanine Aminotransferase (ALT/SGPT) 27 U/L (14-59) Alkaline Phosphatase 108 U/L (46-116) Troponin I Quantitative 0.023 ng/mL (0.000-0.055) YV-Que-V-Type Natriuretic Peptide 219 pg/mL (0-124) Total Protein 7.0 g/dL (6.4-8.2) Albumin 2.7 g/dL (3.4-5.0) Lipase 105 U/L (73-393) Urine Collection Type U cath Urine Color Lise Urine Clarity Cloudy Urine pH 5.5 (<5.0-8.0) Urine Specific Pool >=1.030 (1.000-1.030) Urine Protein 100 mg/dL (NEG-TRACE) Urine Glucose (UA) Negative mg/dL (NEG) Urine Ketones (Stick) >=80 mg/dL (NEG) Urine Blood Large (NEG) Urine Nitrite Positive (NEG) Urine Bilirubin Small (NEG) Urine Urobilinogen Dipstick 1.0 mg/dL (0.2 mg/dL) Urine Leukocyte Esterase Trace (NEG) Urine RBC Rare /HPF (0-2) Urine WBC 1-4 /HPF (0-4) Urine Bacteria Many /HPF (0-FEW) Urine Hyaline Casts Moderate /HPF Urine Mucus Marked /LPF Laboratory Tests Test 10/23/20 14:30 10/23/20 14:50 White Blood Count 10.7 x10^3/uL (4.0-11.0) Red Blood Count 3.94 x10^6/uL (3.50-5.40) Hemoglobin 12.4 g/dL (12.0-15.5) Hematocrit 36.0 % (36.0-47.0) Mean Corpuscular Volume 92 fL (79-100) Mean Corpuscular Hemoglobin 32 pg (25-35) Mean Corpuscular Hemoglobin Concent 35 g/dL (31-37) Red Cell Distribution Width 14.0 % (11.5-14.5) Platelet Count 187 x10^3/uL (140-400) Neutrophils (%) (Auto) 77 % (31-73) Lymphocytes (%) (Auto) 16 % (24-48) Monocytes (%) (Auto) 6 % (0-9) Eosinophils (%) (Auto) 0 % (0-3) Basophils (%) (Auto) 1 % (0-3) Neutrophils # (Auto) 8.2 x10^3/uL (1.8-7.7) Lymphocytes # (Auto) 1.7 x10^3/uL (1.0-4.8) Monocytes # (Auto) 0.6 x10^3/uL (0.0-1.1) Eosinophils # (Auto) 0.0 x10^3/uL (0.0-0.7) Basophils # (Auto) 0.1 x10^3/uL (0.0-0.2) Sodium Level 144 mmol/L (136-145) Potassium Level 3.9 mmol/L (3.5-5.1) Chloride Level 104 mmol/L (98-107) Carbon Dioxide Level 29 mmol/L (21-32) Anion Gap 11 (6-14) Blood Urea Nitrogen 18 mg/dL (7-20) Creatinine 1.2 mg/dL (0.6-1.0) Estimated GFR (Cockcroft-Gault) 45.4 Glucose Level 130 mg/dL (70-99) Lactic Acid Level 1.8 mmol/L (0.4-2.0) Calcium Level 9.3 mg/dL (8.5-10.1) Total Bilirubin 0.6 mg/dL (0.2-1.0) Direct Bilirubin 0.2 mg/dL (0.0-0.2) Aspartate Amino Transf (AST/SGOT) 93 U/L (15-37) Alanine Aminotransferase (ALT/SGPT) 27 U/L (14-59) Alkaline Phosphatase 108 U/L (46-116) Troponin I Quantitative 0.023 ng/mL (0.000-0.055) IY-Cde-F-Type Natriuretic Peptide 219 pg/mL (0-124) Total Protein 7.0 g/dL (6.4-8.2) Albumin 2.7 g/dL (3.4-5.0) Lipase 105 U/L (73-393) Urine Collection Type U cath Urine Color Lise Urine Clarity Cloudy Urine pH 5.5 (<5.0-8.0) Urine Specific Pool >=1.030 (1.000-1.030) Urine Protein 100 mg/dL (NEG-TRACE) Urine Glucose (UA) Negative mg/dL (NEG) Urine Ketones (Stick) >=80 mg/dL (NEG) Urine Blood Large (NEG) Urine Nitrite Positive (NEG) Urine Bilirubin Small (NEG) Urine Urobilinogen Dipstick 1.0 mg/dL (0.2 mg/dL) Urine Leukocyte Esterase Trace (NEG) Urine RBC Rare /HPF (0-2) Urine WBC 1-4 /HPF (0-4) Urine Bacteria Many /HPF (0-FEW) Urine Hyaline Casts Moderate /HPF Urine Mucus Marked /LPF Images Images Signed PATIENT: AMARA HINOJOSA LACCOUNT: [id number] : 1955 LOCATION: ER AGE: 65 SEX: F EXAM STATUS: REG ER ORD. PHYSICIAN: RAEGAN SABA MD REASON: fall PROCEDURE: HIP BILATERAL WITH PELVIS Site ID: [id number] EXAMINATION: XR HIP (WITH OR WITHOUT PELVIS) 1 VIEW. HISTORY: 65 years Female Reason: fall / Spl. Instructions: / History: . COMPARISON: CT scan from October 09, 2015 reviewed.. FINDINGS: No fracture, dislocation or radiopaque foreign body in bilateral hip and AP pelvic radiographs. Sclerotic changes with bone thickening seen along the i nferior pubic ramus, the issue him and the iliac bone around the right acetabulum likely related to Paget's disease. When compared to CT scan from 2015, these changes are seen. There is mild degenerative sclerotic change at the hip joints with the slight joint space narrowing on the left side and marginal osteophyte. Mild degenerative sclerotic changes at the SI joints seen. IMPRESSION: Degenerative changes. No fracture seen. Findings in the left ischium and around the left acetabulum are compatible with Paget's disease of the bone. Electronically signed by: Michaela Patel MD (10/23/2020 4:28 PM) [id number] DICTATED and SIGNED BY: MICHAELA PATEL MD DATE: 10/23/20 [id number] PATIENT: AMARA HINOJOSA LACCOUNT: [id number] : 1955 LOCATION: ER AGE: 65 SEX: F EXAM STATUS: REG ER ORD. PHYSICIAN: RAEGAN SABA MD REASON: facial sinus fractures PROCEDURE: CT MAXILLOFACIAL WO CONTRAST Exam: CT maxillofacial and cervical spine without contrast INDICATION: Facial sinus fracture TECHNIQUE: Sequential axial images through the face and cervical spine obtained without IV contrast. Sagittal and coronal reformatted images were reconstructed from the axial data and reviewed. Exposure: One or more of the following in the visualized dose reduction techniques were utilized for this examination: 1. Automated exposure control 2. Adjustment of the MA and/or KV according to patient size 3. Use of iterative of reconstructive technique Comparisons: CT head without contrast same day FINDINGS: Face: Visualized intracranial structures are unremarkable. Fractures of the anterior and posterior wall of the left maxillary sinus are again noted. The anterior wall fracture is impacted and mildly displaced. There is mild wall thickening involving the left maxillary sinus. Globes and orbital contents are normal. Patient is edentulous. Cervical spine: Straightening of the cervical spine which may positional. Vertebral body heights are well-maintained. Fracture to the cervical spine is not identified. Multilevel spondylotic change in cervical spine with degenerative disc disease greatest at C5-C6 and C6-C7. Mild bilateral facet arthropathy is also noted. Visualized paraspinal soft tissues are unremarkable. IMPRESSION: 1. Fractures involving the anterior and posterior wall of the left maxillary sinus with associated mucosal wall thickening. 2. Negative CT C-spine for acute traumatic injury. Electronically signed by: Hollis Madrid MD (10/23/2020 4:39 PM) [facility] PATIENT: AMARA HINOJOSA LACCOUNT: [id number] : 1955 LOCATION: ER AGE: 65 SEX: F EXAM STATUS: PRE ER ORD. PHYSICIAN: RAEGAN SABA MD REASON: DECREASED LOC PROCEDURE: CHEST AP ONLY EXAM: Chest, single view. HISTORY: Decreased level of consciousness. COMPARISON: 04/10/2016 FINDINGS: A frontal view of the chest is obtained. There is no infiltrate, pleural effusion or pneumothorax. The heart is normal in size. There is lumbar fusion instrumentation, partially included on the [id number]. IMPRESSION: No acute pulmonary finding. Electronically signed by: Araceli Guevara MD (10/23/2020 2:46 PM) [id number] DICTATED and SIGNED BY: ARACELI GUEVARA MD DATE: 10/23/20 [id number] EXAM: CT Head without IV contrast CLINICAL HISTORY: Reason: DECREASED LOC / Spl. Instructions: / History: COMPARISON: None. TECHNIQUE: Routine CT of the head without contrast. RS compliance statement - One or more of the following individualized dose reduction techniques were utilized for this study: 1. Automated exposure control 2. Adjustment of the mA and/or kV according to patient size 3. Use of iterative reconstruction technique FINDINGS: There is no evidence of hemorrhage, mass or extra-axial fluid collection. Marquez-white differentiation is maintained with no evidence of edema. Subcortical and periventricular as well as deep white matter foci of hypoattenuation likely chronic small vessel disease. There is no mass effect or shift of the intracranial structures. The ventricles, basilar cisterns and cortical sulci are normal in size and configuration for the patients stated age. The cerebellum and brainstem are unremarkable. The calvarium demonstrates no evidence of fracture or focal lesion. Partial opacification of the left maxillary sinus with acute appearing fractures of the anterior and posterior white. No definite zygomatic arch fracture. This may extend into the orbital floor and can be further assessed by dedicated CT facial bones. The visualized portions of the orbits are normal. IMPRESSION: 1. There is a nondisplaced fracture of the anterior and posterior wall of the left maxillary sinus with probable involvement of the orbital floor. Associated left maxillary sinus opacification. This can be further profiled by dedicated CT facial bones. 2. Otherwise no evidence for acute intracranial abnormality. 3. White matter changes likely chronic small vessel disease. Electronically signed by: Tacos Garcia MD (10/23/2020 3:30 PM) [facility] DICTATED and SIGNED BY: TACOS GARCIA MD DATE: 10/23/20 [id number] VTE Prophylaxis Ordered VTE Prophylaxis Devices: Yes VTE Pharmacological Prophylaxi: Yes Assessment/Plan Assessment/Plan Impression: UTI (urinary tract infection) Dementia Maxillary fracture, possible orbital floor fx Fractures involving the anterior and posterior wall of the left maxillary sinus with associated mucosal wall thickening.? 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
[2020-10-23] MEDS ORDERED: VANCOMYCIN 1.75 GM in IV NORMAL SALINE 500ML BAG 500 ML IV ONE (16:00)
--- NOTE | 2020-10-23 16:30 | RAD ---
Site ID: [id number] EXAMINATION: XR HIP (WITH OR WITHOUT PELVIS) 1 VIEW. HISTORY: 65 years Female Reason: fall / Spl. Instructions: / History: . COMPARISON: CT scan from October 09, 2015 reviewed.. FINDINGS: No fracture, dislocation or radiopaque foreign body in bilateral hip and AP pelvic radiographs. Scle rotic changes with bone thickening seen along the inferior pubic ramus, the issue him and the iliac b one around the right acetabulum likely related to Paget's disease. When compared to CT scan from 2015 , these changes are seen. There is mild degenerative sclerotic change at the hip joints with the slight joint space narrowing o n the left side and marginal osteophyte. Mild degenerative sclerotic changes at the SI joints seen. IMPRESSION: Degenerative changes. No fracture seen. Findings in the left ischium and around the left acetabulum a re compatible with Paget's disease of the bone. Electronically signed by: Oswaldo Patel MD (10/23/2020 4:28 PM) [id number]
--- NOTE | 2020-10-23 16:41 | RAD ---
Exam: CT maxillofacial and cervical spine without contrast INDICATION: Facial sinus fracture TECHNIQUE: Sequential axial images through the face and cervical spine obtained without IV contrast. Sagittal and coronal reformatted images were reconstructed from the axial data and reviewed. Exposure: One or more of the following in the visualized dose reduction techniques were utilized for this examination: 1. Automated exposure control 2. Adjustment of the MA and/or KV according to patient size 3. Use of iterative of reconstructive technique Comparisons: CT head without contrast same day FINDINGS: Face: Visualized intracranial structures are unremarkable. Fractures of the anterior and posterior wall of the left maxillary sinus are again noted. The anterio r wall fracture is impacted and mildly displaced. There is mild wall thickening involving the left ma xillary sinus. Globes and orbital contents are normal. Patient is edentulous. Cervical spine: Straightening of the cervical spine which may positional. Vertebral body heights are well-maintained. Fracture to the cervical spine is not identified. Multilevel spondylotic change in cervical spine with degenerative disc disease greatest at C5-C6 and C6-C7. Mild bilateral facet arthropathy is also noted. Visualized paraspinal soft tissues are unremarkable. IMPRESSION: 1. Fractures involving the anterior and posterior wall of the left maxillary sinus with associated m ucosal wall thickening. 2. Negative CT C-spine for acute traumatic injury. Electronically signed by: Hollis Madrid MD (10/23/2020 4:39 PM) ROM[facility]
[2020-10-23] MEDS ORDERED: IPRATRPIUM/ALBUTEROL 0.5/2.5MG 3 ML NEBU. NEB SCH (17:00)
[2020-10-23] MEDS ORDERED: ALBUTEROL SULFATE 2.5 MG/3 ML NEBU. NEB PRN (17:15)
--- NOTE | 2020-10-23 18:08 | EKG ---
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
[2020-10-23 19:41] VITALS: BP 116/59
[2020-10-23] MEDS ORDERED: cloZAPine 25 MG TABLET PO SCH (21:00)
[2020-10-23] MEDS ORDERED: FAMOTIDINE 20 MG TABLET. PO SCH (21:00)
[2020-10-23] MEDS ORDERED: SIMVASTATIN 40 MG TABLET. PO SCH (21:00)
[2020-10-23] MEDS ORDERED: METOPROLOL TART IMMED RELEASE 50 MG TABLET. PO SCH (21:00)
[2020-10-24] MEDS ORDERED: INSULIN LISPRO 300 UNITS/3 ML VIAL. SQ SCH (07:30)
[2020-10-24] MEDS ORDERED: SERTRALINE 50 MG TABLET. PO SCH (09:00)
[2020-10-24] MEDS ORDERED: LISINOPRIL 5 MG TABLET. PO SCH (09:00)
[2020-10-24] MEDS ORDERED: MONTELUKAST SODIUM 10 MG TABLET. PO SCH (09:00)
[2020-10-24] MEDS ORDERED: MAGNESIUM OXIDE 400 MG TABLET PO SCH (09:00)
== END 2020-10-23 20:05 | disposition short-term general hospital (02) ==
LOC: ER 14:13
DX: S02.40DA Maxillary fracture, left side, initial encounter for closed fracture (principal); N39.0 Urinary tract infection, site not specified; E86.1 Hypovolemia; R00.0 Tachycardia, unspecified; A41.9 Sepsis, unspecified organism; Z88.8 Allergy status to other drugs, medicaments and biological substances; J44.9 Chronic obstructive pulmonary disease, unspecified; G30.9 Alzheimer's disease, unspecified; F02.80 Dementia in other diseases classified elsewhere, unspecified severity, without behavioral disturbance, psychotic disturbance, mood disturbance, and anxiety; E11.9 Type 2 diabetes mellitus without complications; E78.00 Pure hypercholesterolemia, unspecified; I10 Essential (primary) hypertension; G89.29 Other chronic pain; Z90.710 Acquired absence of both cervix and uterus; W18.39XA Other fall on same level, initial encounter; Y93.89 Activity, other specified; Y92.89 Other specified places as the place of occurrence of the external cause; Y99.8 Other external cause status
CPT/HCPCS: 36415; 70450; 70486; 71045; 72125; 73521; 80048; 80076; 81001; 82550; 83605; 83690; 83880; 84145; 84484; 85025; 87040; 87086; 93005; 96361; 96365; 96366; 96368; 99285; J1956; J3370; J7030; J7040